=== PATIENT | female | born 1985 | race Two or more races ===

== ENCOUNTER 2025-03-30 10:38 | Emergency (ER) | payer OTHER ==
[~2025-03-30] VITALS: Ht 157.5 cm; Wt 54.4 kg
[2025-03-30] MEDS ORDERED: DICLOFENAC POTA50 MG PO (17:03)
== END 2025-03-30 17:16 | disposition home or self-care (01) ==
LOC: ER 10:38
DX: S92.301A Fracture of unspecified metatarsal bone(s), right foot, initial encounter for closed fracture (principal); X58.XXXA Exposure to other specified factors, initial encounter; Y93.89 Activity, other specified; Y92.89 Other specified places as the place of occurrence of the external cause; Y99.8 Other external cause status